=== PATIENT | male | born 1965 | race Two or more races ===

== ENCOUNTER 2023-01-12 11:26 | Observation (INO) | payer OTHER, SELFPAY ==
[2023-01-12 11:41] VITALS: BP 169/94; PULSE 90; RESP 18; TEMP 37; O2SAT 97; BMI 29.8
--- NOTE | 2023-01-12 12:15 | ED_ITS ---
HPI - Skin/Abscess/Foreign Bdy General: Chief complaint: Skin/Abscess/Foreign Body Stated complaint: cp/open wound on chest Time Seen by Provider: 01/12/23 12:15 History of Present Illness: Brenna is a 57-year-old transgender female presenting to the emergency department for concern over skin lesion. She reports history of frequent skin lesions including both fungal and possible MRSA. She noticed a small bump on the left medial breast approximately 1 week ago and it subsequently grew. She was seen at urgent care and started Bactrim 4 days ago as well as topical cream. Since that time however the lesion has grown. She reports congestion and generalized malaise however no definitive fevers or chills or other signs of systemic illness. Intensity symptoms is moderate. There is some superficial drainage. No other specific changes in health, exacerbating, or alleviating factors identified. Onset (ago): day(s) Location: chest Severity: moderate Relieving factors: none Exacerbating factors: palpation Associated symptoms: Reports no associated symptoms Treatments prior to arrival: antibiotic Review of Systems General: Reports: 10 or more systems reviewed and unremarkable except in HPI and below PFSH ED PFSH: Medical History Transgender Surgical History History of abdominal surgery Family History Father Diabetes Social History Smoking and tobacco status: never smoked Alcohol intake: never Physical Exam Const: COMMON NORMALS: alert GENERAL APPEARANCE: cooperative and well developed HENMT: COMMON NORMALS: normocephalic and atraumatic HEAD & SCALP: normocephalic and atraumatic Eye: COMMON NORMALS: conjunctivae normal CONJUNCTIVA: Yes conjunctivae normal SCLERA: sclerae normal Neck/C-Spine: COMMON NORMALS: supple GENERAL: Yes trachea midline Chest: OTHER: L medial breast skin lesion approximately 8x6 cm, indurated Resp: COMMON NORMALS: clear to auscultation bilaterally EFFORT & INSPECTION: Yes able to speak in complete sentences AUSCULTATION: clear to auscultation bilaterally Cardio: COMMON NORMALS: regular rate and regular rhythm RATE: regular rate RHYTHM: regular rhythm GI: COMMON NORMALS: Soft to palpation PALPATION: Yes Soft to palpation and No Tenderness to palpation present (GI) Extremity: GENERAL: Yes normal exam except as noted and No edema Neuro: COMMON NORMALS: moves all extremities SENSORIUM/ORIENTATION: Yes alert and No Orientation impaired Psych: COMMON NORMALS: mental status grossly normal and Normal thought process present THOUGHT PROCESS: Normal thought process present Course Vital Signs: Vital signs: Vital Signs Temperature 97.6 F 01/13/23 15:46 Pulse Rate 67 01/13/23 15:46 Respiratory Rate 17 01/13/23 15:46 Blood Pressure 142/85 01/13/23 15:46 Pulse Oximetry 95 01/13/23 15:46 Oxygen Delivery Me thod Room Air 01/12/23 16:00 MDM - Skin/Abscess/Foreign Bdy Medicial Decision Making 57-year-old transgender woman presenting to the emergency department for concern over skin lesion. Exam as above. Lesion is very atypical in appearance for simple cellulitis however does not exhibit evidence of fluctuance or definite abscess. There is a somewhat fungating appearance though no family history of personal history of cancer and patient is adamant that lesion only recently appeared. Patient is nontoxic. Labs with no significant hematologic or metabolic abnormalities. No lobar consolidation or pneumothorax on chest x-ray or soft tissue ultrasound with cellulitic changes without evidence of drainable fluid collection. Patient treated during ED course with antibiotics. She requires inpatient treatment given failure of outpatient antibiotics. The results of ED evaluation were discussed with the patient including plan for admission due to requirement for level of care not available if discharged to prevent significant worsening/deterioration. Patient agreeable with plan. Discussed with hospitalist service who was agreeable to admit patient. Medical Records I reviewed the patient's medical records. Lab Data I reviewed the patient's lab results. 01/12/23 12:41 01/12/23 12:41 Radiology Impressions Chest X-Ray 01/12/23 12:30 IMPRESSION: 1. No acute cardiopulmonary finding. Soft Tissue Ultrasound 01/12/23 12:39 IMPRESSION: LEFT chest cellulitis with soft tissue edema and skin thickening. No well- defined drainable fluid collection Laboratory Results WBC 7.1 10^3/uL (4.0-10.0) 01/12/23 12:41 RBC 5.18 10^6/uL (4.1-5.3) 01/12/23 12:41 Hgb 14.6 g/dL (11.7-16.6) 01/12/23 12:41 Hct 42.9 % (42.0-52.0) 01/12/23 12:41 MCV 82.8 fl (80-94) 01/12/23 12:41 MCH 28.2 pg (28.0-34.0) 01/12/23 12:41 MCHC 34.0 g/dL (30.0-36.0) 01/12/23 12:41 RDW 13.1 % (12.1-15.1) 01/12/23 12:41 Plt Count 217 10^3/cmm (130-400) 01/12/23 12:41 MPV 9.2 fL (7.4-10.4) 01/12/23 12:41 Neut % (Auto) 64.6 % 01/12/23 12:41 Lymph % (Auto) 19.5 % 01/12/23 12:41 [place] % (Auto) 6.5 % 01/12/23 12:41 Eos % (Auto) 8.5 % 01/12/23 12:41 Baso % (Auto) 0.6 % 01/12/23 12:41 Neut # (Auto) 4.59 10^3/uL (1.8-7.7) 01/12/23 12:41 Lymph # (Auto) 1.4 10^3/uL (0.8-4.8) 01/12/23 12:41 [place] # (Auto) 0.5 10^3/uL (0.2-0.9) 01/12/23 12:41 Eos # (Auto) 0.6 10^3/uL (0.0-0.8) 01/12/23 12:41 Baso # (Auto) 0.0 10^3/uL (0.0-0.1) 01/12/23 12:41 Nucleated RBC % (auto) 0 % 01/12/23 12:41 Nucleated RBCs # 0.0 /100WBC 01/12/23 12:41 ESR 10 mm/hr (0-10) 01/12/23 12:41 Sodium 139 mmol/L (136-145) 01/12/23 12:41 Potassium 4.5 mmol/L (3.5-5.1) 01/12/23 12:41 Chloride 107 mmol/L (98-107) 01/12/23 12:41 Carbon Dioxide 24 mmol/L (22-29) 01/12/23 12:41 Anion Gap 12.5 (5-19) 01/12/23 12:41 BUN 12 mg/dL (6-20) 01/12/23 12:41 Creatinine 1.2 mg/dL (0.7-1.2) 01/12/23 12:41 GFR Calculation 62.0 mL/min (90-130) L 01/12/23 12:41 Glucose 107 mg/dL (65-115) 01/12/23 12:41 Calculated Osmolality 288 mOsm/kg (285-295) 01/12/23 12:41 Calcium 8.4 mg/dL (8.5-10.5) L 01/12/23 12:41 Total Bilirubin 0.5 mg/dL (0.15-1.2) 01/12/23 12:41 AST 12 U/L (0-40) 01/12/23 12:41 ALT 12 U/L (0-41) 01/12/23 12:41 Alkaline Phosphatase 68 U/L (40-130) 01/12/23 12:41 C-Reactive Protein 3.0 mg/L (0.0-4.9) 01/12/23 12:41 C-Reactive Protein 3.0 mg/L (0.0-4.9) 01/12/23 12:41 Total Protein 6.8 g/dL (6.6-8.7) 01/12/23 12:41 Albumin 3.9 g/dL (3.5-5.2) 01/12/23 12:41 Globulin 2.9 g/dL (1.3-4.6) 01/12/23 12:41 Procalcitonin 0.04 ng/mL (0-0.5) 01/12/23 12:41 TSH 0.92 uIU/mL (0.27-4.20) 01/12/23 12:41 Hepatitis A IgM Ab Non-reactive (Nonreactive) 01/12/23 12:41 Hep Bs Antigen Non-reactive (Nonreactive) 01/12/23 12:41 Hep B Core IgM Ab Non-reactive (Nonreactive) 01/12/23 12:41 Hepatitis C Antibody Non-reactive (Nonreactive) 01/12/23 12:41 HIV 1&2 Ab & HIV 1 Ag Non-reactive (Non-Reactiv) 01/12/23 12:41 HIV 1&2 Antibody Non-reactive (Non-Reactiv) 01/12/23 12:41 Discharge Plan Discharge Patient Disposition: Admitted As Inpatient Admit Provider: Igor Gillespie Clinical Impression: Cellulitis Condition: Stable Discharge Diet: Regular Discharge Activity: Resume usual activity Coding Level of Care Code ED [employer] for Bruno Baeza
--- NOTE | 2023-01-12 12:30 | XR_ITS ---
WS: [id number] Exam: XR chest 1V portable [id number] Date/Time of Exam: 01/12/2023 12:37 PM Reason For Exam: chest wall pain, L parasternal Comparison 04/03/2016. The lungs are fully expanded and clear. No pleural effusion. Normal cardiomediastinal silhouette. Bon y structures are intact. 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 XR/XR chest 1V portable [id number] IMPRESSION: 1. No acute cardiopulmonary finding.
--- NOTE | 2023-01-12 12:39 | US_ITS ---
WS: [id number] INDICATION: LEFT chest. Redness and swelling TECHNIQUE: Ultrasound soft tissue FINDINGS: Ultrasound soft tissue area of concern LEFT chest. Subcutaneous edema with skin thickening and scattered fluid. No well-defined drainable fluid collections. Findings compatible with cellulitis . Associated hyperemia. US/US soft tissue/extremity [id number] IMPRESSION: LEFT chest cellulitis with soft tissue edema and skin thickening. No well-defin ed drainable fluid collection
[2023-01-12 12:50] LABS: Basophils % 0.6 %; Eosinophils # 0.6 10^3/uL (0.0-0.8); Eosinophils % 8.5 %; Hematocrit 42.9 % (42.0-52.0); Hemoglobin 14.6 g/dL (11.7-16.6); Lymphocytes # 1.4 10^3/uL (0.8-4.8); Lymphocytes % 19.5 %; Mean Corpuscular Hemoglobin 28.2 pg (28.0-34.0); Mean Corpuscular Volume 82.8 fl (80-94); Mean Platelet Volume 9.2 fL (7.4-10.4); Monocytes # 0.5 10^3/uL (0.2-0.9); Monocytes % 6.5 %; Neutrophils # 4.59 10^3/uL (1.8-7.7); Neutrophils % 64.6 %; Nucleated Red Blood Cells % 0 %; Platelet Count 217 10^3/cmm (130-400); Red Blood Count 5.18 10^6/uL (4.1-5.3); Red Cell Distribution Width 13.1 % (12.1-15.1); White Blood Count 7.1 10^3/uL (4.0-10.0)
[2023-01-12 13:09] LABS: Alanine Aminotransferase 12 U/L (0-41); Albumin Level 3.9 g/dL (3.5-5.2); Alkaline Phosphatase 68 U/L (40-130); Anion Gap 12.5 (5-19); Aspartate Amino Transferase 12 U/L (0-40); Blood Urea Nitrogen 12 mg/dL (6-20); Calcium 8.4 mg/dL (8.5-10.5); Carbon Dioxide 24 mmol/L (22-29); Chloride 107 mmol/L (98-107); Globulin 2.9 g/dL (1.3-4.6); Glucose 107 mg/dL (65-115); Osmolality Calculated 288 mOsm/kg (285-295); Potassium 4.5 mmol/L (3.5-5.1); Sodium 139 mmol/L (136-145); Total Bilirubin 0.5 mg/dL (0.15-1.2); Total Protein 6.8 g/dL (6.6-8.7)
[2023-01-12 13:22] LABS: Erythrocyte Sedimentation Rate 10 mm/hr (0-10)
[2023-01-12 13:24] VITALS: BP 164/83; PULSE 83; RESP 18; O2SAT 97
--- NOTE | 2023-01-12 14:50 | P.HP_ITS ---
Providers/Chief Complaint Admitting Physician: Igor Gillespie MD Primary Care Provider: Pako Lora MD Chief Complaint: cp/open wound on chest History of Present Illness Tim Patiño is a 57 year old male transgender female, with no significant past medical history, presents to [facility] due to an area of cellulitis along his left chest. He tells me that he has a history of MRSA infections. The spot on his chest started about a week ago, he was placed on Bactrim but since then it is involving his rapidly enlarging it is tender to touch, no fevers, chills, no drainage, no nausea, no vomiting Review of Systems 2 Const: Denies: fever(s) Eyes: Denies: change in vision Card: Denies: chest pain Resp: Denies: dyspnea GI: Denies: abdominal pain : Denies: dysuria Neuro: Denies: headache(s) Medications/Allergies Home Medications Medication Instructions Recorded Confirmed Last Taken Type mupirocin 2 % topical ointment 1 applic topical QID 14 days #22 01/08/23 01/12/23 01/12/23 Rx grams sulfamethoxazole 800 1 tab PO BID 10 days #20 tabs 01/08/23 01/12/23 01/12/23 Rx mg-trimethoprim 160 mg tablet (Bactrim DS) ibuprofen 200 mg capsule 200 mg PO Q6H PRN Pain 01/12/23 01/12/23 Unknown History loratadine 10 mg capsule 10 mg PO DAILY PRN Allergy Symptoms 01/12/23 01/12/23 Unknown History Allergies Allergy/AdvReac Type Severity Reaction Status Date / Time No Known Allergies Allergy Verified 01/12/23 14:28 PFSH Acute PFSH: Medical History Transgender Surgical History (Updated 01/12/23 @ 14:51 by Igor Gillespie MD) History of abdominal surgery Family History (Updated 01/12/23 @ 14:52 by Igor Gillespie MD) Father Diabetes Social History (Updated 01/12/23 @ 14:52 by Igor Gillespie MD) Smoking and tobacco status: never smoked Alcohol intake: never Substance/Drug Use: current Substance/Drug use type: Marijuana Vitals/I&O/Wt Last Vital Signs Temp 98.6 F 01/12/23 11:41 Pulse 83 01/12/23 13:24 Resp 18 01/12/23 13:24 BP 164/83 01/12/23 13:24 Pulse Ox 97 01/12/23 13:24 O2 Del Method 01/12/23 13:24 Weight last 48 hrs Weight 99.79 kg Physical Exam Const: COMMON NORMALS: no acute distress and patient oriented x3 HENMT: COMMON NORMALS: normocephalic HEAD & SCALP: normocephalic Eye: COMMON NORMALS: Equal, round and reactive pupils present and EOMs intact bilaterally Neck/C-Spine: COMMON NORMALS: no JVD Lymph: LYMPHATIC: no lymphadenopathy noted Chest: COMMONS NORMALS: normal inspection of the breasts OTHER: Left chest, to the left of the breast, 10 x 10 cm round area irregular borders, with erythema, maculopapular Resp: COMMON NORMALS: normal respiratory effort, No retractions, No use of accessory muscles and clear to auscultation bilaterally AUSCULTATION: clear to auscultation bilaterally Cardio: COMMON NORMALS: no JVD, regular rate, regular rhythm, S1 normal heart sound present and S2 normal heart sound present RATE: regular rate RHYTHM: regular rhythm HEART SOUNDS: S1 normal heart sound present and S2 normal heart sound present GI: COMMON NORMALS: Normal to inspection, nondistended, normoactive bowel sounds present, Soft to palpation and non-tender Extremity: COMMON NORMALS: no calf tenderness and no pedal edema Neuro: COMMON NORMALS: patient oriented x3, CN's II-XII intact bilaterally, moves all extremities and no focal motor deficits Psych: COMMON NORMALS: mental status grossly normal Data 01/12/23 12:41 01/12/23 12:41 Micro: Microbiology 01/12/23 13:07 Blood Culture - Preliminary Blood SPECIMEN COLLECTED 01/12/23 12:41 Blood Culture - Preliminary Blood SPECIMEN COLLECTED A&P Assessment and plan (1) Cellulitis: Plan Cellulitis -Left chest -Has unusual appearance, -Will MRSA nears, tissue cultures -ESR, CRP, Pro-Neel -Continue Vanco, cefepime -Monitor clinical progress -We will consider imaging based on clinical progress -HIV, acute hep panel -Full code -Lovenox for DVT prophylaxis Attestations Medical Necessity Statement*: Patient requires hospitalization, outpatient with observation for cellulitis Diagnoses Cellulitis L03.90
[2023-01-12 15:09] VITALS: BMI 30.7
[2023-01-12 15:35] VITALS: O2SAT 97
[2023-01-12] MEDS: enoxaparin 40 mg/0.4 mL Syringe SUBCUT (15:59)
[2023-01-12 16:00] VITALS: BP 128/79; PULSE 65; RESP 16; TEMP 36.5; O2SAT 93
[2023-01-12 16:00] LABS: Procalcitonin 0.04 ng/mL (0-0.5); Thyroid Stimulating Hormone 0.92 uIU/mL (0.27-4.20)
[2023-01-12 16:01] LABS: Hepatitis A Antibody IgM Non-Reactive (Nonreactive); Hepatitis B Core IgM Non-Reactive (Nonreactive); Hepatitis B Surface Antigen Non-Reactive (Nonreactive); Hepatitis C Virus Antibody Non-Reactive (Nonreactive)
[2023-01-12 16:59] LABS: Erythrocyte Sedimentation Rate 7 mm/hr (0-10)
--- NOTE | 2023-01-12 17:07 | PC.PHAR ---
Pharmacy to dose vancomycin 1500 mg Q12H Pharmacokinetic dosing service Objective: Patient: Floor: Age: 57 yo Serum creatinine: 1.2 mg/dL Height: 72.0 Inches Weight (kg): 103 Assessment: IBW (kg): 77.60 Dosing wt(kg): 103 Estimated Creatinine clearance (ml/min): 82.3 CRCL method: Cockcroft and Gault using adjusted body weight Drug selected: Vancomycin Loading dose (mg): Vd (liters): 72.1 (factor used: 0.7 L/kg) Bernard (hr-1): 0.073 Half life (hrs): 9.50 CLvanco=?? 5.263 L/hr Recommended dose: 1500 mg Interval: 12 hrs Infusion time (hrs): 1 Predicted peak (mcg/mL): 34.4 Predicted trough (mcg/mL): 15.41 Total body weight is being used for vancomycin dosing. Recommendations: Give Vancomycin 1500 mg q 12 hrs with an expected Cpeak of 34.4 mcg/ml and an expected Ctrough of 15.41 mcg/ml AUC 0-24 /KUMAR Data: KUAMR 0.5 mcg/mL:?? AUC/KUMAR:? 1140.0 KUMAR 1.0 mcg/mL:?? AUC/KUMAR:? 570.0 --------- KUMAR 1.5 mcg/mL:?? AUC/KUMAR:? 380.0 KUMAR 2.0 mcg/mL:?? AUC/KUMAR:? 285.0 Thank you for the consult, will continue to follow.
[2023-01-12] MEDS: cefepime 1,000 MG in sodium chloride 0.9% (plus) 50 ML 100 MG IV (17:09)
[2023-01-12 17:59] LABS: HIV 1 & 2 Antibody Non-Reactive (Non-Reactiv); HIV 1 & 2 Antigen Non-Reactive (Non-Reactiv)
[2023-01-12] MEDS: HYDROcodone-acetaminophen 5-325 mg Tablet 1 TAB PO (18:28)
[2023-01-12 19:53] VITALS: BP 126/74; PULSE 70; RESP 18; TEMP 36.5; O2SAT 94
[2023-01-13 00:42] VITALS: BP 149/91; PULSE 73; RESP 19; TEMP 36.4; O2SAT 93
[2023-01-13 03:45] VITALS: RESP 18
[2023-01-13] MEDS: morphine 4 mg/mL SDV 1 mL 1 MG IVP (03:45)
[2023-01-13 03:55] VITALS: BP 136/85; PULSE 63; RESP 20; TEMP 36.4; O2SAT 94
[2023-01-13] MEDS: cefepime 1,000 MG in sodium chloride 0.9% (plus) 50 ML 100 MG IV (05:24)
[2023-01-13] MEDS: HYDROcodone-acetaminophen 5-325 mg Tablet 1 TAB PO (07:40)
[2023-01-13 08:00] VITALS: BP 142/85; PULSE 67; RESP 17; TEMP 36.4; O2SAT 95
--- NOTE | 2023-01-13 11:18 | PM.DCS ---
Discharge Providers Date of Admission: 01/12/23 15:00 Date of Discharge: January 13, 2023 Attending Provider at Admission: Igor Gillespie MD Attending Provider at Discharge: Igor Gillespie MD Primary Care Provider: Pako Lora MD Diagnoses at Discharge Discharge Diagnosis (1) Cellulitis: Status: Acute Reason for Visit Reason for Visit: cp/open wound on chest Hospital Course Hospital Course Tim Patiño is a 57 year old male transgender female, with no significant past medical history, presents to [facility] due to an area of cellulitis along his left chest.? He tells me that he has a history of MRSA infections.? The spot on his chest started about a week ago, he was placed on Bactrim but since then it is involving his rapidly enlarging it is tender to touch, no fevers, chills, no drainage, no nausea, no vomiting Patient was admitted to [facility] for cellulitis along his left chest, received antibiotic therapy, overall clinically improved, redness around the lesion improved. HIV test negative. Acute hep panel negative. ESR was 7. Soft tissue ultrasound negative for drainable abscess. Due to unusual appearance of cellulitis, this is a lesion is roughly 10 x 10 cm, irregular borders, maculopapular, raised ulcerated lesion, I will have patient follow-up with Dr. Sauceda as outpatient for consideration of skin biopsy. Advised to keep skin clean and dry can do wet-to-dry dressings, doxycycline Augmentin for 7 more days. Physical Exam Const: COMMON NORMALS: no acute distress and patient oriented x3 Resp: COMMON NORMALS: normal respiratory effort, No retractions, No use of accessory muscles and clear to auscultation bilaterally AUSCULTATION: clear to auscultation bilaterally Cardio: COMMON NORMALS: regular rate, regular rhythm, S1 normal heart sound present and S2 normal heart sound present RATE: regular rate RHYTHM: regular rhythm HEART SOUNDS: S1 normal heart sound present and S2 normal heart sound present GI: COMMON NORMALS: Normal to inspection, nondistended, normoactive bowel sounds present and non-tender Extremity: COMMON NORMALS: no pedal edema Neuro: COMMON NORMALS: patient oriented x3 Psych: COMMON NORMALS: mental status grossly normal Discharge Data Studies Completed and Pending Completed Studies During Hospitalization Category Date Time Status XR chest 1V portable [id number] Stat Exams 01/12/23 12:30 Completed US soft tissue and or extremity [US soft tissue/ Ultrasound 01/12/23 12:39 Completed extremity [id number]] Stat Pending at discharge Category Date Time Status Blood Culture Stat Lab 01/12/23 13:07 Results MRSA by PCR Stat Lab 01/12/23 15:55 Received Wound Culture Stat Lab 01/12/23 18:30 Received Radiology Impressions Chest X-Ray 01/12/23 12:30 IMPRESSION: 1. No acute cardiopulmonary finding. Soft Tissue Ultrasound 01/12/23 12:39 IMPRESSION: LEFT chest cellulitis with soft tissue edema and skin thickening. No well-defined drainable fluid collection Laboratory Results WBC 7.1 10^3/uL (4.0-10.0) 01/12/23 12:41 RBC 5.18 10^6/uL (4.1-5.3) 01/12/23 12:41 Hgb 14.6 g/dL (11.7-16.6) 01/12/23 12:41 Hct 42.9 % (42.0-52.0) 01/12/23 12:41 MCV 82.8 fl (80-94) 01/12/23 12:41 MCH 28.2 pg (28.0-34.0) 01/12/23 12:41 MCHC 34.0 g/dL (30.0-36.0) 01/12/23 12:41 RDW 13.1 % (12.1-15.1) 01/12/23 12:41 Plt Count 217 10^3/cmm (130-400) 01/12/23 12:41 MPV 9.2 fL (7.4-10.4) 01/12/23 12:41 Neut % (Auto) 64.6 % 01/12/23 12:41 Lymph % (Auto) 19.5 % 01/12/23 12:41 [place] % (Auto) 6.5 % 01/12/23 12:41 Eos % (Auto) 8.5 % 01/12/23 12:41 Baso % (Auto) 0.6 % 01/12/23 12:41 Neut # (Auto) 4.59 10^3/uL (1.8-7.7) 01/12/23 12:41 Lymph # (Auto) 1.4 10^3/uL (0.8-4.8) 01/12/23 12:41 [place] # (Auto) 0.5 10^3/uL (0.2-0.9) 01/12/23 12:41 Eos # (Auto) 0.6 10^3/uL (0.0-0.8) 01/12/23 12:41 Baso # (Auto) 0.0 10^3/uL (0.0-0.1) 01/12/23 12:41 Nucleated RBC % (auto) 0 % 01/12/23 12:41 Nucleated RBCs # 0.0 /100WBC 01/12/23 12:41 ESR 7 mm/hr (0-10) 01/12/23 16:30 Sodium 139 mmol/L (136-145) 01/12/23 12:41 Potassium 4.5 mmol/L (3.5-5.1) 01/12/23 12:41 Chloride 107 mmol/L (98-107) 01/12/23 12:41 Carbon Dioxide 24 mmol/L (22-29) 01/12/23 12:41 Anion Gap 12.5 (5-19) 01/12/23 12:41 BUN 12 mg/dL (6-20) 01/12/23 12:41 Creatinine 1.2 mg/dL (0.7-1.2) 01/12/23 12:41 GFR Calculation 62.0 mL/min (90-130) L 01/12/23 12:41 Glucose 107 mg/dL (65-115) 01/12/23 12:41 Calculated Osmolality 288 mOsm/kg (285-295) 01/12/23 12:41 Calcium 8.4 mg/dL (8.5-10.5) L 01/12/23 12:41 Total Bilirubin 0.5 mg/dL (0.15-1.2) 01/12/23 12:41 AST 12 U/L (0-40) 01/12/23 12:41 ALT 12 U/L (0-41) 01/12/23 12:41 Alkaline Phosphatase 68 U/L (40-130) 01/12/23 12:41 C-Reactive Protein 3.0 mg/L (0.0-4.9) 01/12/23 12:41 C-Reactive Protein 3.0 mg/L (0.0-4.9) 01/12/23 12:41 Total Protein 6.8 g/dL (6.6-8.7) 01/12/23 12:41 Albumin 3.9 g/dL (3.5-5.2) 01/12/23 12:41 Globulin 2.9 g/dL (1.3-4.6) 01/12/23 12:41 Procalcitonin 0.04 ng/mL (0-0.5) 01/12/23 12:41 TSH 0.92 uIU/mL (0.27-4.20) 01/12/23 12:41 Hepatitis A IgM Ab Non-reactive (Nonreactive) 01/12/23 12:41 Hep Bs Antigen Non-reactive (Nonreactive) 01/12/23 12:41 Hep B Core IgM Ab Non-reactive (Nonreactive) 01/12/23 12:41 Hepatitis C Antibody Non-reactive (Nonreactive) 01/12/23 12:41 HIV 1&2 Ab & HIV 1 Ag Non-reactive (Non-Reactiv) 01/12/23 12:41 HIV 1&2 Antibody Non-reactive (Non-Reactiv) 01/12/23 12:41 Vitals Last Vital Signs Temp 97.6 F 01/13/23 08:00 Pulse 67 01/13/23 08:00 Resp 17 01/13/23 08:00 BP 142/85 01/13/23 08:00 Pulse Ox 95 01/13/23 08:00 O2 Del Method 01/12/23 16:00 Discharge Plan Discharge Patient Disposition: Home Condition: Stable Prescriptions: New amoxicillin-pot clavulanate 875-125 mg tablet 1 tab PO BID 7 Days Qty: 14 0RF doxycycline hyclate 100 mg tablet 100 mg PO BID 7 Days Qty: 14 0RF Continued mupirocin 2 % ointment 1 applic topical QID 14 Days Qty: 22 0RF ibuprofen 200 mg Capsule 200 mg PO Q6H PRN (Reason: Pain) loratadine 10 mg Capsule 10 mg PO DAILY PRN (Reason: Allergy Symptoms) Discontinued sulfamethoxazole-trimethoprim [Bactrim DS] 800-160 mg tablet 1 tab PO BID 10 Days Qty: 20 0RF Discharge Orders: Discharge Order (Routine); Ordered 01/13/23 Ordered By: Igor Gillespie Referrals: Pako Lora MD [Primary Care Provider] - Katherine Sauceda DO [Physician] - 1-3 days Discharge Diet: Regular Discharge Activity: Resume usual activity Patient Instructions: Acute Wound Care (GEN), Acute Wounds (DC), Opioid Safety Discharge Attestations Time Spent in Discharge Care*: greater than 30 min Quality Metrics Clinical Quality Measures [ No reported AMI, CVA or VTE this stay] Coding Level of Care Code 03708 Total time (in minutes) for Discharge: 40 Diagnoses Cellulitis L03.90
[2023-01-13 15:46] VITALS: BP 142/85; PULSE 67; RESP 17; TEMP 36.4; O2SAT 95
== END 2023-01-13 15:47 | disposition home or self-care (01) ==
LOC: ER 13:43 → MEDSURG 14:23
PROVIDERS: Admitting Provider Family Medicine; Emergency Provider Emergency Medicine; PCP Family Medicine; Visit Provider Family Medicine
DX: L03.313 Cellulitis of chest wall (principal); F64.8 Other gender identity disorders; Z86.14 Personal history of Methicillin resistant Staphylococcus aureus infection
CPT/HCPCS: 36415; 71045; 76882; 80053; 80074; 84145; 84443; 85025; 85651; 86140; 87040; 87070; 87641; 87806; 94664; 96365; 96366; 96372; 96375; 99285; G0378; J0692; J1650; J2270; J3370; J7040

== ENCOUNTER → 2023-11-16 11:39 | Outpatient (BNVA) | payer OTHER, SELFPAY | PROVIDERS: PCP Family Medicine; Visit Provider Family Medicine | DX: Z13.6 Encounter for screening for cardiovascular disorders (principal); F41.1 Generalized anxiety disorder; Z79.899 Other long term (current) drug therapy | CPT/HCPCS: 80053; 80061; 84443; 85025 ==

== ENCOUNTER 2023-12-13 14:48 | Outpatient (CLI) | payer OTHER, SELFPAY ==
--- NOTE | 2023-12-13 15:00 | CT_ITS ---
WS: [id number] CT PARANASAL SINUSES HISTORY: recurrent sinusitis TECHNIQUE: Contiguous 2.5 mm axial images obtained through the sinuses. Images are reconstructed in s agittal and coronal planes. All CT scans at [facility] use at least one of these dose optimiz ation techniques: automated exposure control; mA and/or kV adjustment per patient size (includes targ eted exams where dose is matched to clinical indication); or iterative reconstruction. DLP: 481.45 mGy.cm COMPARISON: None available. Frontal sinuses: Small hypoplastic frontal sinuses. No air-fluid level. Sphenoid sinus: Frothy secretions in the RIGHT sphenoid sinus and mild mucoperiosteal thickening. No air-fluid levels. Ethmoid sinuses: Mild bilateral ethmoid airspace disease, slightly greater in the anterior ethmoid ai r cells. Maxillary sinus: Mucoperiosteal thickening. No air-fluid levels. Ostiomeatal unit: Complete opacification and obstruction of the ostiomeatal units. There is soft tiss ue extending through the ostiomeatal units into the anterior ethmoid air cells. No obvious bone erosi on. The uncinate processes are poorly visualized. Greater disease on the LEFT. Mild bowing of the nasal septum to the LEFT. IMPRESSION: 1. 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 Poor visualization of the uncinate processes. 2. No air-fluid levels in the maxillary sinuses. 3. Mild nasal septal bowing to the LEFT.
== END 2023-12-13 14:49 | disposition home or self-care (01) ==
LOC: RAD 14:48
PROVIDERS: PCP Family Medicine; Visit Provider Family Medicine
DX: J32.9 Chronic sinusitis, unspecified (principal)
CPT/HCPCS: 70486

== ENCOUNTER → 2023-12-20 14:57 | Outpatient (BNVA) | payer OTHER, SELFPAY | PROVIDERS: PCP Family Medicine; Visit Provider Podiatrist Foot & Ankle Surgery | DX: M20.32 Hallux varus (acquired), left foot; M20.42 Other hammer toe(s) (acquired), left foot; M19.072 Primary osteoarthritis, left ankle and foot | CPT/HCPCS: 73630 ==

== ENCOUNTER → 2024-01-24 10:15 | Outpatient (BNVA) | payer OTHER, SELFPAY | PROVIDERS: PCP Family Medicine; Visit Provider Podiatrist Foot & Ankle Surgery | DX: M25.571 Pain in right ankle and joints of right foot (principal); M25.572 Pain in left ankle and joints of left foot; M20.32 Hallux varus (acquired), left foot; M20.42 Other hammer toe(s) (acquired), left foot; S93.401A Sprain of unspecified ligament of right ankle, initial encounter; W11.XXXA Fall on and from ladder, initial encounter; M19.172 Post-traumatic osteoarthritis, left ankle and foot; S82.892S Other fracture of left lower leg, sequela; X58.XXXS Exposure to other specified factors, sequela | CPT/HCPCS: 73610 ==

== ENCOUNTER → 2024-02-29 11:16 | Outpatient (BNVA) | payer OTHER, SELFPAY | PROVIDERS: PCP Family Medicine; Referring Provider Podiatrist Foot & Ankle Surgery; Visit Provider Student in an Organized Health Care Education/Training Program | DX: M25.561 Pain in right knee (principal); M25.562 Pain in left knee; M25.551 Pain in right hip; M53.3 Sacrococcygeal disorders, not elsewhere classified; M17.12 Unilateral primary osteoarthritis, left knee | CPT/HCPCS: 73502; 73560; 73565 ==

== ENCOUNTER 2024-12-10 10:20 | Outpatient (RCR) | payer OTHER, SELFPAY | END 2024-12-12 23:59 | disposition home or self-care (01) | LOC: SPT 10:20 | PROVIDERS: Visit Provider Student in an Organized Health Care Education/Training Program | DX: M25.561 Pain in right knee (principal); S76.311D Strain of muscle, fascia and tendon of the posterior muscle group at thigh level, right thigh, subsequent encounter; X58.XXXD Exposure to other specified factors, subsequent encounter | CPT/HCPCS: 97161 ==

== ENCOUNTER 2024-12-13 06:30 | Outpatient (RCR) | payer OTHER, SELFPAY | END 2025-01-12 23:59 | disposition home or self-care (01) | LOC: SPT 06:30 | PROVIDERS: PCP Family Medicine; Visit Provider Student in an Organized Health Care Education/Training Program | DX: M25.561 Pain in right knee (principal); S76.311D Strain of muscle, fascia and tendon of the posterior muscle group at thigh level, right thigh, subsequent encounter; X58.XXXD Exposure to other specified factors, subsequent encounter | CPT/HCPCS: 97110 ==

== ENCOUNTER 2025-06-09 11:52 | Outpatient (CLI) | payer OTHER, SELFPAY | END 2025-06-09 11:53 | disposition home or self-care (01) | LOC: SPT 11:56 | PROVIDERS: PCP Family Medicine; Visit Provider Student in an Organized Health Care Education/Training Program | DX: Z46.89 Encounter for fitting and adjustment of other specified devices (principal); G56.02 Carpal tunnel syndrome, left upper limb | CPT/HCPCS: L3908 ==

== ENCOUNTER → 2025-09-24 11:28 | Outpatient (BNVA) | payer OTHER, SELFPAY | PROVIDERS: PCP Family Medicine; Visit Provider Emergency Medicine | DX: J06.9 Acute upper respiratory infection, unspecified (principal) | CPT/HCPCS: 87070 ==